=== PATIENT | female | born 1995 | race Hispanic/Latino ===

== ENCOUNTER 2021-01-04 01:00 | Emergency (ER) | payer OTHER ==
[~2021-01-04] VITALS: Ht 162.6 cm; Wt 53.1 kg
[2021-01-04 01:18] VITALS: BP 143/81
--- NOTE | 2021-01-04 01:27 | ER.PDOC ---
General Chief Complaint: Female Urogenital Problems Stated Complaint: FEMALE Time seen by MD: 01:18 Source: patient Exam Limitations: no limitations History of Present Illness Initial Comments Patient is a 25-year-old woman who presents the emergency department with a chief complaint of wanting to get checked for STD. Patient states she has had sex with multiple partners without using any protection and one of her partners told her she should get checked for STD. Patient denies any green or yellow vaginal discharge, pelvic pain, sores on her perineum. Patient states she has had some mild cramping and mild clear to white vaginal discharge. She states her last menstrual period was about a week ago and normal.She denies any dysuria, frequency, hematuria. Patient denies any fever. Timing/Duration: this evening Severity/Quality: mild, cramping Vaginal Bleed: abnormal bleeding (none) LMP (females 10-50): last week Sexual [place] History: multiple partners Contraceptive: none Associated Symptoms: denies symptoms Allergies: Coded Allergies: No Known Drug Allergies (Verified Allergy, Unknown, 01/03/20) Past Medical History Medical History: no pertinent history Surgical History: no surgical history Family History Significant Family History: no pertinent family hx Social History Smoking: cigarettes Drug Use: cocaine, marijuana, Meth, other Review of Systems Constitutional: denies fever Gastrointestinal: denies abdominal pain, denies nausea, denies vomiting Genitourinary: denies burning, denies discharge, denies dysuria, denies hematuria Musculoskeletal: denies back pain Skin: denies change in color Psychiatric/Neurological: denies anxiety Hematologic/Lymphatic: denies easy bleeding All Other Systems: Reviewed and Negative Physical Exam General Appearance: No Apparent Distress, WD/WN EENT: eyes nml inspection, nml ENT inspection, pharynx nml Neck: nml inspection, non-tender Cardiovascular/Respiratory: Regular Rate, Rhythm, No M/R/G, Normal Peripheral Pulses, Normal Breath Sounds, No Respiratory Distress Abdomen: Normal Bowel Sounds, Non Tender, Soft, No Organomegaly, No Pulsatile Mass Back: nml inspection Extremities: Normal Range of Motion, Non-Tender, Normal Inspection, No Pedal Edema, No Calf Tenderness, Normal Capillary Refill Neurologic/Psychiatric: farrowing manager II-XII NML as Tested, No Motor/Sensory Deficits, Alert, Normal Mood/Affect, Oriented x 3 Skin: Normal Color, Warm/Dry Results/Orders Results/Orders Orders - MOLLY BOOTH MD Chlam/Gc/Trich (01/04/21 01:19) Hcg Urine (01/04/21 01:19) Urinalysis (01/04/21 01:19) Urine Culture (01/04/21 01:00) Vital Signs Date Time Temp Pulse Resp B/P (MAP) Pulse Ox O2 Delivery O2 Flow Rate FiO2 01/04/21 01:18 98.0 120 18 98 01/04/21 01:18 98.0 120 18 01/04/21 01:18 98.0 120 18 143/81 (101) 98 Room Air Laboratory Tests Test 01/04/21 01:00 Urine Collection Type RANDOM Urine Color YELLOW Urine Appearance TURBID Urine Bilirubin NEGATIVE (NEGATIVE) Urine Ketones NEGATIVE (NEGATIVE) Urine Specific [place] >=1.030 (1.005-1.030) Urine pH 5.5 (4.5-8.0) Urine Protein TRACE (NEGATIVE) H Urine Urobilinogen 1.0 E.U./dL (0.2) Urine Nitrate POSITIVE (NEGATIVE) H Urine Leukocyte Esterase TRACE (NEGATIVE) H Urine Glucose (Auto)(UA) NEGATIVE (NEGATIVE) Urine Blood TRACE-INTACT (NEGATIVE) H Urine RBC 0-2 RBC/HPF (NONE SEEN) Urine WBC 10-25 WBC/HPF (0-2) H Urine Squamous Epithelial Cells FEW #/HPF (FEW) Urine Bacteria MANY (NONE SEEN) H Urine HCG, Qualitative NEGATIVE (NEGATIVE) Progress Progress Patient's UA shows white cells and nitrates consistent with acute cystitis.Patient's test was negative.Patient's GC and Chlamydia are pending at the time of dictation.Patient appears to have acute cystitis. Patient does not appear to have acute appendicitis, diverticulitis, ectopic , ruptured tubo-ovarian abscess, ovarian torsion, dehydration, sepsis, or other serious etiology of her symptoms. Patient will be discharged home. ER DEPART Departure Time of Disposition: 01:50 Disposition: HOME, SELF-CARE Impression: Primary Impression: Acute cystitis Condition: Stable Referrals: PCP,UNKNOWN (PCP) PRIMARY CARE PROVIDER Additional Instructions: Thank you for your visit today and trusting us with your health care needs. Return immediately if severe pain, persistent vomiting, unusual vaginal bleeding, fever.Macrobid as prescribed for acute cystitis.Use rubber latex condoms to prevent sexually transmitted disease.Follow-up with primary care physician in 1 week. Scripts Nitrofurantoin Monohyd/M-Cryst (MACROBID 100 MG CAPSULE) 100 Mg Capsule 1 CAP PO BID for 5 Days, #10 CAP 0 Refills Prov: MOLLY BOOTH MD 01/04/21 Duration or Time Spent with Pa: 20 Return to Work/School Can a patient return to work?: Yes Problem Qualifiers Primary Impression: Acute cystitis Hematuria presence: without hematuria Qualified Codes: N30.00 - Acute cystitis without hematuria MOLLY BOOTH MD Jan 04, 2021 01:27
[2021-01-04 01:30] LABS: BILIRUBIN,URINE NEGATIVE (NEGATIVE); UA COLOR YELLOW
[2021-01-04] MEDS ORDERED: NITR100C58 PO (01:55)
[2021-01-04 02:07] VITALS: BP 127/72
== END 2021-01-04 02:05 | disposition home or self-care (01) ==
LOC: ER 01:00
DX: N30.01 Acute cystitis with hematuria (principal); F17.210 Nicotine dependence, cigarettes, uncomplicated
CPT/HCPCS: 81000; 81003; 81025; 87077; 87086; 87186; 87491; 99283